=== PATIENT | male | born 1965 | race African-American/Black ===

== ENCOUNTER 2017-03-20 06:51 | Emergency (ER) | payer MEDICAID, OTHER ==
[~2017-03-20] VITALS: Ht 175.3 cm; Wt 75.0 kg
[~2017-03-20 06:51] MED LIST: TRAM50TA73 PO; WARF5TAB76 PO; [UNRECOGNIZED DRUG - OTHER]
[2017-03-20] MEDS ORDERED: ALBUTEROL (0.083%) 2.5MG/3ML NEB HHN STA (07:11)
[2017-03-20] MEDS ORDERED: IPRATROPIUM BROMIDE (0.02%) 0.5MG/2.5ML NEB HHN STA (07:11)
[2017-03-20 07:18] LABS: BASOPHILS % 1.1 % (0.0-2.0); EOSINOPHILS % 6.7 % (0.0-5.0); HEMATOCRIT. 41.4 % (42.0-52.0); HEMOGLOBIN. 13.6 g/dL (14.0-18.0); LYMPHOCYTES % 34.1 % (20.0-50.0); MEAN CORPUSCULAR HEMOGLOBIN 27.7 pg (28.0-32.0); MEAN CORPUSCULAR VOLUME 84.2 fL (80.0-94.0); NEUTROPHILS % 45.1 % (40.0-76.0); PLATELET 294 x1000/uL (130-400); RED BLOOD CELL COUNT 4.92 mill/uL (4.7-6.1); RED CELL DISTRIBUTION WIDTH 17.2 % (11.6-14.6)
[2017-03-20] MEDS ORDERED: ALBUTEROL (0.5%) 2.5MG/0.5ML NEB HHN ONE (07:23)
[2017-03-20 07:25] LABS: PARTIAL THROMBOPLASTIN TIME 27.1 sec (24.0-34.0); PROTHROMBIN TIME 10.1 sec
[2017-03-20 07:33] LABS: CARBON DIOXIDE 31 mEq/L (21-32); CHLORIDE 107 mEq/L (98-107); CREATINE KINASE 63 IU/L (39-308); CREATINE KINASE MB FRACTION 0.6 ng/mL (0.5-3.6); TROPONIN I < 0.02 ng/mL (0.00-0.04)
[2017-03-20 08:53] VITALS: BP 127/81
== END 2017-03-20 08:55 | disposition home or self-care (01) ==
LOC: ER 07:01
DX: J45.901 Unspecified asthma with (acute) exacerbation (principal); I10 Essential (primary) hypertension; F17.200 Nicotine dependence, unspecified, uncomplicated; F12.10 Cannabis abuse, uncomplicated; J44.9 Chronic obstructive pulmonary disease, unspecified; E11.9 Type 2 diabetes mellitus without complications; Z88.5 Allergy status to narcotic agent; Z79.01 Long term (current) use of anticoagulants
CPT/HCPCS: 36415; 71010; 80053; 82550; 82553; 83690; 83880; 84484; 85025; 85610; 85730; 93005; 94640; 99285; G0482; J7611; Z7610